=== PATIENT | male | born 1940 | race Caucasian/White ===

== ENCOUNTER 2020-09-04 17:10 | Emergency (ER) | payer MEDICARE, OTHER, SELFPAY ==
--- NOTE | ~2020-09-04 | XR_ITS ---
EXAMINATION: XR foot LT min 3V EXAM DATE: 09/04/2020 17:24 INDICATION: Left foot pain distally, kicked in object last night. Diabetes. TECHNIQUE: Left foot dorsoplantar, lateral and oblique projections obtained and reviewed. There is n o prior study for comparison. FINDINGS: Acute closed posttraumatic fracture of the left 3rd middle phalangeal base. This finding huff s been indicated, marked on the examination for review, clinical correlation. Left metatarsal bones unremarkable. Projection only foreshortened appearance to the 2nd-5th proximal phalanges, limiting evaluation of these. Tiny inferior calcaneal spur. IMPRESSION: 1. Acute left 3rd middle phalangeal base intra-articular fracture. Reviewed, dictated and finalized at location A.
[2020-09-04 17:23] VITALS: BP 165/60; PULSE 85; RESP 16; TEMP 36.9; O2SAT 98
--- NOTE | 2020-09-04 17:23 | ED.LOWEXIN ---
HPI - Extremity Injury (Lower) General Chief Complaint: Extremity Injury, Lower Stated Complaint: FOOT INJURY Time Seen by Provider: 09/04/20 17:20 Source: patient, RN notes reviewed and old records reviewed Mode of arrival: ambulatory Limitations: no limitations History of Present Illness HPI Narrative: 80 year old male presents to [facility] ambulatory with complaints of accidently kicking a box 1.5 days ago with pain, bruising and swelling to his left toes 3-5. Patient states that his pain is acute and is aggravated with ambulation. Patient states that he sees a doctor in [facility] and that his called him and he wanted him to have x-ray done to see if fracture is present in toes or foot since he is diabetic. Patient has no open skin areas to the left toes 3-5, no obvious deformity of fracture, does have some swelling and bruising to his toes. Patient takes OxyContin daily for chronic back pain, describes his pain as aching rates it 12/22. MD complaint: foot injury (toes left foot 3-5) Onset (ago): day(s) (1.5) Injury: Left: toes (3-5) Type of Injury: blunt Place: home Severity: severe Severity scale (1-10): 7 Relieving factors: rest Exacerbating factors: weight bearing Context: direct blow Associated symptoms: swelling and other (pain) Other symptoms: none Treatments prior to arrival: other (takes daily pain medication for his back) Related Data Home Medications Medication Instructions Recorded Confirmed amitriptyline 09/04/20 ammonium lactate TOPICAL 09/04/20 ergocalciferol (vitamin D2) 09/04/20 furosemide 09/04/20 gabapentin 09/04/20 gemfibrozil mg 09/04/20 glipizide mg 09/04/20 insulin aspart U-100 [Novolog unit SUBCUT 09/04/20 Flexpen U-100 Insulin] levothyroxine [Euthyrox] 09/04/20 lisinopril 09/04/20 omeprazole 09/04/20 oxycodone-acetaminophen 09/04/20 pravastatin 09/04/20 tamsulosin mg PO 09/04/20 Allergies Allergy/AdvReac Type Severity Reaction Status Date / Time No Known Allergies Allergy Unverified 09/05/20 10:29 Review of Systems Review of Systems: Narrative: CONSTITUTIONAL: Denies fever, chills, or sweats. EYES: Denies visual changes, redness, or discharge. ENT: Denies rhinorrhea, congestion, sore throat, or otalgia. CARDIOVASCULAR: Denies chest pain, palpitations, or edema. RESPIRATORY: Denies cough or dyspnea. GASTROINTESTINAL: Denies abdominal pain, nausea, vomiting, or diarrhea. GENITOURINARY: Denies dysuria or hematuria. SKIN: Denies rash or itching. MUSCULOSKELETAL Positive for chronic back pain back, pain to left 3rd,4th, and 5th toes of left foot. NEUROLOGIC: Denies headache, numbness, or weakness. PSYCHIATRIC: Denies anxiety or depression. All systems reviewed & are unremarkable except as noted in HPI and below PMFSH Past Medical History Medical History (Updated 09/06/20 @ 12:03 by Rosario Louie NP) Back pain Burst fracture of lumbar vertebra L1 Diabetes Enlarged prostate Hyperlipidemia Hypertension Hypothyroidism Kidney disease Surgical History Surgical History H/O left inguinal hernia repair Family History Family History Other Diabetes mellitus Hypertension Social History Social History (Updated 09/06/20 @ 11:51 by Rosario Louie NP) Smoking status: Unknown if ever smoked Alcohol intake: unknown Substance use: current Substance use type: opiates Other substance usage details: chronic pain to back Living arrangements: with family Gender identity (if verbalized by the patient): Male Comments At time of signature, agree with nursing past medical, surgical, social and family history. There is no relevant family history pertinent to the presenting complaint Exam Narrative: Exam Narrative: GENERAL: Well-appearing, well-nourished, and in mild distress. HEAD: Normocephalic, atraumatic. EYES: PERRLA and
[2020-09-04 17:31] VITALS: BP 165/60; PULSE 85; RESP 16; TEMP 36.9; O2SAT 98
== END 2020-09-04 17:49 | disposition home or self-care (01) ==
PROVIDERS: Emergency Provider Registered Nurse
DX: S92.525A Nondisplaced fracture of middle phalanx of left lesser toe(s), initial encounter for closed fracture (principal); W22.8XXA Striking against or struck by other objects, initial encounter; E11.9 Type 2 diabetes mellitus without complications; E78.5 Hyperlipidemia, unspecified; I10 Essential (primary) hypertension; E03.9 Hypothyroidism, unspecified
CPT/HCPCS: 73630; 99204; G0463

== ENCOUNTER 2022-05-04 15:07 | Emergency (ER) | payer MEDICARE, OTHER, SELFPAY ==
--- NOTE | ~2022-05-04 | XR_ITS ---
EXAM: XR ankle LT min 3V DATE: 05/04/2022 15:56 HISTORY: hyper extension strain . COMPARISON: None available. FINDINGS: Decreased mineralization. Anterior tibiotalar joint widening, with posterior subluxation o f the talus. Transverse, mildly distracted medial malleolar fracture. Oblique posteriorly angulated f racture of the distal fibula, at the level of the joint (Garza B type). Posterior malleolar fracture, with posterior displacement. No lytic or blastic lesion. No erosion or periosteal change. Soft tissu e swelling about the ankle. IMPRESSION: Trimalleolar left ankle fracture, with posterior tibiotalar subluxation. Reviewed, dictated and finalized at location K. TER (CAD) ELECTRICAL IMPRESSION: Trimalleolar left ankle fracture, with posterior tibiotalar subluxa tion.
[2022-05-04 15:10] VITALS: BP 160/72; PULSE 77; RESP 18; TEMP 36.1; O2SAT 100
--- NOTE | 2022-05-04 15:19 | ED.LOWEXIN ---
HPI - Extremity Injury (Lower) General Chief Complaint: Extremity Injury, Lower Stated Complaint: left ankle swelling/pain Time Seen by Provider: 05/04/22 15:15 Source: patient and RN notes reviewed Mode of arrival: ambulatory Limitations: no limitations History of Present Illness HPI Narrative: patient states he was walking through the house caught his toe on the carpet and hyper extended his right ankle. Now it hurts to walk on or touch it. MD complaint: ankle injury Injury: Left: knee Type of Injury: hyperextension Place: home Severity: moderate Relieving factors: nothing Exacerbating factors: weight bearing, movement and palpation Context: walking Associated symptoms: swelling and able to partially bear weight Other symptoms: none Related Data Home Medications Medication Instructions Recorded Confirmed amitriptyline 50 mg tablet 50 mg PO DAILY 09/04/20 05/04/22 ergocalciferol (vitamin D2) 1,250 1 unit PO DAILY 09/04/20 05/04/22 mcg (50,000 unit) capsule furosemide 20 mg tablet 10 mg PO DAILY 09/04/20 05/04/22 gabapentin 600 mg tablet 600 mg PO QID 09/04/20 05/04/22 gemfibrozil 600 mg tablet 600 mg PO DAILY 09/04/20 05/04/22 glipizide 5 mg tablet 5 mg PO DAILY 09/04/20 05/04/22 insulin aspart U-100 100 unit/mL 30 unit subcut QAM 09/04/20 05/04/22 (3 mL) subcutaneous pen (Novolog Flexpen U-100 Insulin aspart) levothyroxine 125 mcg tablet 125 mcg PO DAILY 09/04/20 05/04/22 (Euthyrox) lisinopril 5 mg tablet 5 mg PO DAILY 09/04/20 05/04/22 omeprazole 20 mg capsule,delayed 20 mg PO DAILY 09/04/20 05/04/22 release oxycodone-acetaminophen 10 mg-325 1 tablet PO PRN PRN Back Pain 09/04/20 05/04/22 mg tablet pravastatin 40 mg tablet 40 mg PO DAILY 09/04/20 05/04/22 tamsulosin 0.4 mg capsule 0.4 mg PO DAILY 09/04/20 05/04/22 Allergies Allergy/AdvReac Type Severity Reaction Status Date / Time No Known Allergies Allergy Unverified 09/05/20 10:29 Review of Systems Review of Systems: All systems reviewed & are unremarkable except as noted in HPI and below PMFSH Past Medical History Medical History Back pain Burst fracture of lumbar vertebra L1 Diabetes Enlarged prostate Hyperlipidemia Hypertension Hypothyroidism Kidney disease Surgical History Surgical History H/O left inguinal hernia repair Family History Family History Other Diabetes mellitus Hypertension Social History Social History Smoking status: Unknown if ever smoked Alcohol intake: unknown Substance use: current Substance use type: opiates Other substance usage details: chronic pain to back Gender identity (if verbalized by the patient): Male Exam Const: General: healthy appearing, no acute distress and alert Nutritional Appearance: well nourished and obese Orientation/consciousness: patient oriented x3 Limitations: no limitations HENMT: Head: normal to inspection Ears: external ears normal Face and sinus: normal facial exam Eyes: Conjunctivae: conjunctivae normal Pupils: Equal, round and reactive pupils present EOM: EOMs intact bilaterally Neck: Neck: normal visual inspection Resp: Effort & Inspection: normal respiratory effort Auscultation: clear to auscultation bilaterally Cardio: Rate: regular rate Rhythm: regular rhythm Heart sounds: Murmur heart sound present systolic holo, soft, III/ and at the right sternal border GI: GI Palp: Yes Soft to palpation and No Tenderness to palpation present (GI) Auscultation: normal bowel sounds Back/Spine/Pelvis: Cervical Spine: cervical ROM normal Thoracic/Lumbar Spine: thoraco-lumbar ROM normal Skin: General skin exam: normal color Rashes: no rashes Neuro: General: patient oriented x3, moves all extremities, no focal motor deficits and CN's
[2022-05-04] MEDS: HYDROcodone/acetaminophen (*CRX) 5-325 MG TABLET 1 TAB PO (16:33)
[2022-05-04 17:23] VITALS: BP 177/73; PULSE 73; RESP 20; TEMP 36.6; O2SAT 98
--- NOTE | 2022-05-04 18:06 | PC.NURSE ---
pt assisted to personal car via wheelchair with mariela abad
== END 2022-05-04 17:40 | disposition short-term general hospital (02) ==
PROVIDERS: Emergency Provider Emergency Medicine
DX: S82.852A Displaced trimalleolar fracture of left lower leg, initial encounter for closed fracture (principal); E11.9 Type 2 diabetes mellitus without complications; E78.5 Hyperlipidemia, unspecified; I10 Essential (primary) hypertension; E03.9 Hypothyroidism, unspecified
CPT/HCPCS: 27818; 73610; 99285; A9270

== ENCOUNTER 2022-05-15 12:35 | Inpatient (IN) | payer MEDICARE, OTHER, SELFPAY ==
--- NOTE | 2022-05-15 13:16 | ADMGEN ---
This patient, Moses Aparicio, was admitted to 2nd Floor Room 205-2. Patient/family oriented to hospital policies and general routines including ID bracelet, bed and alarms, visiting hours, pain management, procedures, bathroom and other care routines, personal items, smoking policy, room service/diet, and visiting hours. Information on how to activate the Rapid Response Team has been discussed. Patient/Family are encouraged to report perceived risks to care and to ask questions if they do not understand what they are told or what they should do.
[2022-05-15 13:18] VITALS: BMI 31.0
[2022-05-15 13:41] VITALS: PULSE 69; RESP 16; O2SAT 95
[2022-05-15] MEDS: GABAPENTIN 300 MG CAPSULE 600 MG PO ×2 (15:58→20:17)
[2022-05-15] MEDS: oxyCODONE/ACETAMINOPHEN (*CRX) 5-325 MG TABLET 1 TABLET PO (15:59)
[2022-05-15 16:00] VITALS: BP 145/65; PULSE 68; TEMP 36.4; O2SAT 97
--- NOTE | 2022-05-15 16:18 | PC.NURSE ---
Patient stated he was concerned about medications. Stated He takes oxycodone IR 10-325 mg 4x's a day for chronic back pain. Stated he doesn't take opiates or percocet. Stated he takes 1200 mg of neurotin QID. Asked if he could have his bring in medication bottles or list of medications he stated he doesn't like people to mess with his medicine Passed on information to charge nurse.
[2022-05-15 16:41] LABS: Glucose Point of Care 139 mg/dl (65-105)
--- NOTE | 2022-05-15 17:03 | PC.NURSE ---
Patient stated he called [facility] and requested a current med list be faxed to this number. Checked 2nd floor and 1st floor faxes-have not received at this time. reassured patient we will continue to work on medication
--- NOTE | 2022-05-15 19:04 | PC.NURSE ---
Patient called [facility] and requested we call. Spoke with Linda Pharmacist at [facility]. She confimed the following medication: Neurontin 600 mg 4x a day lasix 10 mg. Pravastatin 40 mg. Percocet 10/325 mg up to 4x a day. Patient became irate when other nurse and this nurse went over meds. Stated this was not the medication he took at home. Attempted to explain to patient gabapentin was the same dose. He continued to argue and become very loud and irate about medication. Stated he was going to call his doctor in the morning. we strongly encouraged him to have his doctor speak to hospitalist in the morning. We did attempt to explain his doctor did not have privileges at our hospital and the hospitalist and pharmacy worked together to determine the medication.
[2022-05-15] MEDS: ENOXAPARIN 40 MG/0.4 ML SYRINGE SUB-Q (20:12)
[2022-05-15] MEDS: AMITRIPTYLINE HCL 25 MG TABLET 50 MG PO (20:12)
[2022-05-15 20:17] LABS: Glucose Point of Care 311 mg/dl (65-105)
[2022-05-15] MEDS: traMADol HCL (*CRX) 50 MG TABLET PO (20:30)
[2022-05-15] MEDS: traZODone HCL 50 MG TABLET PO (20:30)
--- NOTE | 2022-05-15 21:47 | PC.NURSE ---
Dorys Klein, Hospitalist, notified that patient's HS blood sugar was 311. New orders received.
[2022-05-16] VITALS: BP 148/58; PULSE 75; RESP 18; TEMP 36.2; O2SAT 96
[2022-05-16 05:33] LABS: Hematocrit 30.5 % (37.0-46.0); Mean Corpuscular HGB Conc 32.8 g/dL (32.0-36.0); Mean Corpuscular Hemoglobin 30.4 pg (27.0-31.0); Mean Corpuscular Volume 92.7 fL (78.0-102.0); Platelet Count Result 360 K/mm3 (150-420); Red Blood Count 3.29 M/mm3 (4.70-6.10); Red Cell Distribution Width 12.2 % (11.6-14.4); White Blood Count 6.5 K/mm3 (4.8-10.8)
[2022-05-16 05:56] LABS: Alanine Aminotransferase 29 U/L (16-63); Albumin Level 2.5 g/dL (3.4-5.0); Alkaline Phosphatase 130 U/L (46-116); Anion Gap 9 mmol/L (8-16); Aspartate Amino Transferase 26 U/L (15-37); Bilirubin,Total 0.3 mg/dL (0.00-1.00); Blood Urea Nitrogen 30 mg/dL (7-18); Calcium 8.7 mg/dL (8.5-10.1); Carbon Dioxide 30 mmol/L (21-32); Chloride 105 mmol/L (98-108); Estimated CRCL calculation 37 ml/min; Estimated Glomerular Filt Rate 45; Glucose 116 mg/dL (70-99); Magnesium 1.6 mg/dL (1.8-2.4); Osmolality Calculated 305 mOsm/kg (285-295); Potassium 4.2 mmol/L (3.5-5.1); Sodium 144 mmol/L (136-145); Total Protein 6.8 g/dL (6.4-8.2)
[2022-05-16] MEDS: LEVOTHYROXINE SODIUM 100 MCG TABLET PO (06:07)
[2022-05-16] MEDS: LEVOTHYROXINE SODIUM 25 MCG TABLET PO (06:07)
[2022-05-16] MEDS: oxyCODONE/ACETAMINOPHEN (*CRX) 5-325 MG TABLET 1 TABLET PO ×2 (06:20→13:06)
[2022-05-16 07:25] VITALS: BP 117/85; PULSE 65; RESP 20; TEMP 36.3; O2SAT 95
[2022-05-16 07:29] LABS: Glucose Point of Care 114 mg/dl (65-105)
[2022-05-16] MEDS: FAMOTIDINE 20 MG TABLET 10 MG PO (08:00)
[2022-05-16] MEDS: PRAVASTATIN SODIUM 20 MG TABLET 40 MG PO (08:01)
[2022-05-16] MEDS: FUROSEMIDE 20 MG TABLET 10 MG PO (08:01)
[2022-05-16] MEDS: lisinopriL 10 MG TABLET PO (08:01)
[2022-05-16] MEDS: DOCUSATE SODIUM 100 MG CAPSULE PO (08:02)
[2022-05-16] MEDS: GABAPENTIN 300 MG CAPSULE 600 MG PO (08:02)
[2022-05-16] MEDS: TAMSULOSIN HCL 0.4 MG CAPSULE PO (08:02)
[2022-05-16] MEDS: ASPIRIN 81 MG CHEWABLE TABLET PO (08:02)
[2022-05-16] MEDS: CHOLECALCIFEROL 1,000 UNITS TABLET 1000 UNITS PO (08:03)
[2022-05-16] MEDS: gemfibroziL 600 MG TABLET PO (08:03)
[2022-05-16] MEDS: ENOXAPARIN 40 MG/0.4 ML SYRINGE SUB-Q ×2 (08:03→20:11)
[2022-05-16] MEDS: CYANOCOBALAMIN 1,000 MCG TABLET 1000 MCG PO (08:04)
[2022-05-16 11:38] LABS: Glucose Point of Care 260 mg/dl (65-105)
[2022-05-16] MEDS: GABAPENTIN 400 MG CAPSULE 1200 MG PO ×3 (11:41→20:12)
[2022-05-16] MEDS: LIDOCAINE 5% PATCH 1 PATCH TRANSDERM (11:41)
--- NOTE | 2022-05-16 11:44 | PM.IMHP ---
H&P: HPI History of Present Illness Date/Time: 05/16/22 11:44 Chief Complaint: rehab/weakness Narrative: 86-year-old male who presents to our hospital for rehab patient is status post left ankle ORIF on status post fall. Patient has a past medical history of chronic kidney disease, osteoarthritis, diabetes, hyperlipidemia, hypothyroidism, hypertension, and GERD. Patient admitted in swing bed for rehabilitation due to decreased balance decreased mobility in severe limited function endurant and/or mobility.. The patient denies SOB, CP, palpitation, extremity numbness, lightheadedness, dizziness, constipation, diarrhea, chills, or fever. patient notes that he has chronic back pain. he also notes that his medications are incorrect. call to his primary doctor Dr. Cook at [phone] for medication clarification. Review of Systems Review of Systems: A 14 organ system Review of Systems was performed and pertinent positives included in the HPI, otherwise remaining ROS is negative. [facility] Past Medical History Medical History Back pain Burst fracture of lumbar vertebra L1 Diabetes Enlarged prostate Hyperlipidemia Hypertension Hypothyroidism Kidney disease Surgical History Surgical History H/O left inguinal hernia repair Family History Family History (Updated 05/15/22 @ 13:31 by Ivet Santacruz RN) Father Diabetes mellitus Sibling Diabetes mellitus Other Hypertension Social History Social History Smoking status: Never smoker Alcohol intake: never Substance use: never Substance use type: opiates Other substance usage details: chronic pain to back Lack of Transportation: No Lack of Food: Never True Current Housing: I Have Housing Concerned About Future Housing: No Difficulty Paying Gas/Electric Bills: No Difficulty Paying for Meds: No Currently Unemployed: No Education: Grade School Difficulty w/ Childcare or Family Care: No Gender identity (if verbalized by the patient): Male Spiritual care concerns: No Meds Home Medications and Allergies Home Medications Medication Instructions Recorded Confirmed Type ergocalciferol (vitamin D2) 1,250 1 unit PO DAILY 09/04/20 05/15/22 History mcg (50,000 unit) capsule furosemide 20 mg tablet 10 mg PO DAILY 09/04/20 05/15/22 History gabapentin 600 mg tablet 600 mg PO QID 09/04/20 05/15/22 History gemfibrozil 600 mg tablet 600 mg PO DAILY 09/04/20 05/15/22 History insulin aspart U-100 100 unit/mL 30 unit subcut QAM 09/04/20 05/15/22 History (3 mL) subcutaneous pen (Novolog Flexpen U-100 Insulin aspart) levothyroxine 125 mcg tablet 125 mcg PO DAILY 09/04/20 05/15/22 History (Euthyrox) lisinopril 5 mg tablet 10 mg PO DAILY 09/04/20 05/15/22 History pravastatin 40 mg tablet 40 mg PO DAILY 09/04/20 05/15/22 History tamsulosin 0.4 mg capsule 0.4 mg PO DAILY 09/04/20 05/15/22 History Senna Plus (senna-docusate) 1 tablet BYMOUTH DAILY PRN 05/15/22 05/15/22 History Constipation acetaminophen 325 mg tablet 650 mg PO Q4-6H PRN Pain 05/15/22 05/15/22 History amitriptyline 50 mg tablet 50 mg HS 05/15/22 05/15/22 History aspirin 81 mg capsule 81 mg PO DAILY 05/15/22 05/15/22 History calcium carbonate 215 mg calcium 500 mg PO TIDWM PRN Acid Reflux 05/15/22 05/15/22 History (500 mg) chewable tablet (Antacid (calcium carbonate)) cyanocobalamin (vitamin B-12) 1,000 mcg PO DAILY 05/15/22 05/15/22 History 1,000 mcg tablet (Vitamin B-12) enoxaparin 40 mg/0.4 mL 40 mg subcut Q12H 05/15/22 05/15/22 History subcutaneous syringe famotidine 10 mg tablet 10 mg PO DAILY 05/15/22 05/15/22 History insulin glargine 100 unit/mL 18 unit subcut DAILY 05/15/22 05/15/22 History subcutaneous solution (Lantus U-100 Insulin) omega-3 fatty acids 1 cap PO TIDWMEAL 05/15/2205/15
[2022-05-16 16:00] VITALS: BP 108/52; PULSE 70; RESP 16; TEMP 36.6; O2SAT 94
[2022-05-16 16:09] LABS: Glucose Point of Care 227 mg/dl (65-105)
[2022-05-16] MEDS: AMITRIPTYLINE HCL 25 MG TABLET 50 MG PO (20:12)
[2022-05-16] MEDS: traZODone HCL 50 MG TABLET PO (20:13)
[2022-05-16 20:14] LABS: Glucose Point of Care 170 mg/dl (65-105)
[2022-05-17] VITALS: BP 125/55; PULSE 72; RESP 20; TEMP 36.2; O2SAT 97
[2022-05-17] MEDS: LEVOTHYROXINE SODIUM 25 MCG TABLET PO (06:18)
[2022-05-17] MEDS: LEVOTHYROXINE SODIUM 100 MCG TABLET PO (06:18)
[2022-05-17] MEDS: oxyCODONE/ACETAMINOPHEN (*CRX) 5-325 MG TABLET 1 TABLET PO (06:19)
[2022-05-17 08:00] VITALS: BP 123/54; PULSE 61; RESP 16; TEMP 36.9; O2SAT 96
[2022-05-17] MEDS: MAGNESIUM OXIDE 400 MG TABLET PO (09:26)
[2022-05-17] MEDS: ENOXAPARIN 40 MG/0.4 ML SYRINGE SUB-Q ×2 (09:26→21:06)
[2022-05-17] MEDS: PRAVASTATIN SODIUM 20 MG TABLET 40 MG PO (09:26)
[2022-05-17] MEDS: lisinopriL 10 MG TABLET PO (09:26)
[2022-05-17] MEDS: gemfibroziL 600 MG TABLET PO (09:27)
[2022-05-17] MEDS: FAMOTIDINE 20 MG TABLET 10 MG PO (09:27)
[2022-05-17] MEDS: TAMSULOSIN HCL 0.4 MG CAPSULE PO (09:27)
[2022-05-17] MEDS: CYANOCOBALAMIN 1,000 MCG TABLET 1000 MCG PO (09:28)
[2022-05-17] MEDS: DOCUSATE SODIUM 100 MG CAPSULE PO ×2 (09:28→21:07)
[2022-05-17] MEDS: ASPIRIN 81 MG CHEWABLE TABLET PO (09:28)
[2022-05-17] MEDS: GABAPENTIN 400 MG CAPSULE 1200 MG PO ×2 (09:28→13:03)
[2022-05-17 09:29] LABS: Glucose Point of Care 315 mg/dl (65-105)
[2022-05-17] MEDS: FUROSEMIDE 20 MG TABLET 10 MG PO (09:29)
[2022-05-17] MEDS: CHOLECALCIFEROL 1,000 UNITS TABLET 1000 UNITS PO (09:30)
[2022-05-17] MEDS: LIDOCAINE 5% PATCH 1 PATCH TRANSDERM (09:32)
[2022-05-17 11:51] LABS: Glucose Point of Care 283 mg/dl (65-105)
[2022-05-17 16:35] VITALS: BP 127/60; PULSE 69; RESP 18; TEMP 36.3; O2SAT 95
[2022-05-17 17:07] LABS: Glucose Point of Care 195 mg/dl (65-105)
[2022-05-17] MEDS: AMITRIPTYLINE HCL 25 MG TABLET 50 MG PO (21:07)
[2022-05-17] MEDS: traZODone HCL 50 MG TABLET PO (21:07)
[2022-05-17 21:17] LABS: Glucose Point of Care 219 mg/dl (65-105)
[2022-05-17 23:57] VITALS: BP 120/59; PULSE 72; RESP 18; TEMP 36.8; O2SAT 95
[2022-05-18] MEDS: LEVOTHYROXINE SODIUM 25 MCG TABLET PO (05:39)
[2022-05-18] MEDS: LEVOTHYROXINE SODIUM 100 MCG TABLET PO (05:39)
[2022-05-18 07:49] LABS: Glucose Point of Care 160 mg/dl (65-105)
[2022-05-18 08:00] VITALS: BP 139/73; PULSE 65; RESP 16; TEMP 36.3; O2SAT 97
[2022-05-18] MEDS: PRAVASTATIN SODIUM 20 MG TABLET 40 MG PO (09:35)
[2022-05-18] MEDS: ENOXAPARIN 40 MG/0.4 ML SYRINGE SUB-Q ×2 (09:35→20:40)
[2022-05-18] MEDS: gemfibroziL 600 MG TABLET PO (09:36)
[2022-05-18] MEDS: lisinopriL 10 MG TABLET PO (09:39)
[2022-05-18] MEDS: FUROSEMIDE 20 MG TABLET 10 MG PO (09:39)
[2022-05-18] MEDS: FAMOTIDINE 20 MG TABLET 10 MG PO (09:41)
[2022-05-18] MEDS: CYANOCOBALAMIN 1,000 MCG TABLET 1000 MCG PO (09:42)
[2022-05-18] MEDS: ASPIRIN 81 MG CHEWABLE TABLET PO (09:42)
[2022-05-18] MEDS: TAMSULOSIN HCL 0.4 MG CAPSULE PO (09:43)
[2022-05-18 11:59] LABS: Glucose Point of Care 252 mg/dl (65-105)
[2022-05-18 16:35] VITALS: BP 153/65; PULSE 73; RESP 18; TEMP 36.6; O2SAT 97
[2022-05-18 17:05] LABS: Glucose Point of Care 180 mg/dl (65-105)
[2022-05-18 20:44] LABS: Glucose Point of Care 246 mg/dl (65-105)
[2022-05-18] MEDS: AMITRIPTYLINE HCL 25 MG TABLET 50 MG PO (20:45)
[2022-05-18] MEDS: GABAPENTIN 400 MG CAPSULE 1200 MG PO (20:46)
[2022-05-18] MEDS: DOCUSATE SODIUM 100 MG CAPSULE PO (20:46)
[2022-05-18] MEDS: traZODone HCL 50 MG TABLET PO (20:47)
[2022-05-18] MEDS: oxyCODONE/ACETAMINOPHEN (*CRX) 5-325 MG TABLET 1 TABLET PO (22:43)
[2022-05-18 23:29] VITALS: BP 174/67; PULSE 72; RESP 17; TEMP 36.6; O2SAT 94
[2022-05-19] MEDS: LEVOTHYROXINE SODIUM 100 MCG TABLET PO (06:10)
[2022-05-19] MEDS: LEVOTHYROXINE SODIUM 25 MCG TABLET PO (06:10)
[2022-05-19 08:00] VITALS: BP 131/63; PULSE 62; RESP 16; TEMP 36.3; O2SAT 97
[2022-05-19 08:04] LABS: Glucose Point of Care 160 mg/dl (65-105)
[2022-05-19] MEDS: ENOXAPARIN 40 MG/0.4 ML SYRINGE SUB-Q ×2 (08:21→21:11)
[2022-05-19] MEDS: oxyCODONE/ACETAMINOPHEN (*CRX) 5-325 MG TABLET 1 TABLET PO (08:21)
[2022-05-19] MEDS: gemfibroziL 600 MG TABLET PO (08:23)
[2022-05-19] MEDS: MAGNESIUM OXIDE 400 MG TABLET PO (08:24)
[2022-05-19] MEDS: CYANOCOBALAMIN 1,000 MCG TABLET 1000 MCG PO (08:25)
[2022-05-19] MEDS: TAMSULOSIN HCL 0.4 MG CAPSULE PO (08:25)
[2022-05-19] MEDS: CHOLECALCIFEROL 1,000 UNITS TABLET 1000 UNITS PO (08:25)
[2022-05-19] MEDS: FAMOTIDINE 20 MG TABLET 10 MG PO (08:25)
[2022-05-19] MEDS: lisinopriL 10 MG TABLET PO (08:26)
[2022-05-19] MEDS: DOCUSATE SODIUM 100 MG CAPSULE PO ×2 (08:26→21:10)
[2022-05-19] MEDS: PRAVASTATIN SODIUM 20 MG TABLET 40 MG PO (08:27)
[2022-05-19] MEDS: FUROSEMIDE 20 MG TABLET 10 MG PO (08:27)
[2022-05-19] MEDS: ASPIRIN 81 MG CHEWABLE TABLET PO (08:28)
--- NOTE | 2022-05-19 13:03 | PC.NURSE ---
Patient refused am and 1300 gabapentin.
[2022-05-19 16:00] VITALS: BP 112/47; PULSE 70; RESP 16; TEMP 36.8; O2SAT 97
[2022-05-19] MEDS: ACETAMINOPHEN 325 MG TABLET 650 MG PO ×2 (16:37→22:25)
[2022-05-19] MEDS: GABAPENTIN 400 MG CAPSULE 1200 MG PO ×2 (16:38→21:10)
[2022-05-19 16:41] LABS: Glucose Point of Care 198 mg/dl (65-105)
[2022-05-19] MEDS: traZODone HCL 50 MG TABLET PO (21:10)
[2022-05-19] MEDS: AMITRIPTYLINE HCL 25 MG TABLET 50 MG PO (21:11)
[2022-05-19 21:23] LABS: Glucose Point of Care 211 mg/dl (65-105)
[2022-05-20] VITALS: BP 130/65; PULSE 66; RESP 16; TEMP 37.2; O2SAT 95
[2022-05-20 00:45] LABS: Glucose Point of Care 196 mg/dl (65-105)
[2022-05-20] MEDS: LEVOTHYROXINE SODIUM 100 MCG TABLET PO (06:40)
[2022-05-20] MEDS: LEVOTHYROXINE SODIUM 25 MCG TABLET PO (06:40)
[2022-05-20 08:00] VITALS: BP 147/70; PULSE 66; RESP 16; TEMP 36.6; O2SAT 97
[2022-05-20] MEDS: ENOXAPARIN 40 MG/0.4 ML SYRINGE SUB-Q ×2 (08:51→21:01)
[2022-05-20] MEDS: CHOLECALCIFEROL 1,000 UNITS TABLET 1000 UNITS PO (08:52)
[2022-05-20] MEDS: ASPIRIN 81 MG CHEWABLE TABLET PO (08:52)
[2022-05-20 08:53] LABS: Glucose Point of Care 232 mg/dl (65-105)
[2022-05-20] MEDS: DOCUSATE SODIUM 100 MG CAPSULE PO ×2 (08:53→21:19)
[2022-05-20] MEDS: FAMOTIDINE 20 MG TABLET 10 MG PO (08:53)
[2022-05-20] MEDS: TAMSULOSIN HCL 0.4 MG CAPSULE PO (08:53)
[2022-05-20] MEDS: PRAVASTATIN SODIUM 20 MG TABLET 40 MG PO (08:54)
[2022-05-20] MEDS: lisinopriL 10 MG TABLET PO (08:54)
[2022-05-20] MEDS: CYANOCOBALAMIN 1,000 MCG TABLET 1000 MCG PO (08:55)
[2022-05-20] MEDS: gemfibroziL 600 MG TABLET PO (08:55)
[2022-05-20] MEDS: MAGNESIUM OXIDE 400 MG TABLET PO (08:55)
[2022-05-20] MEDS: FUROSEMIDE 20 MG TABLET 10 MG PO (08:56)
[2022-05-20] MEDS: ACETAMINOPHEN 325 MG TABLET 650 MG PO (09:33)
[2022-05-20 11:53] LABS: Glucose Point of Care 223 mg/dl (65-105)
[2022-05-20] MEDS: GABAPENTIN 400 MG CAPSULE 1200 MG PO (13:04)
[2022-05-20 16:00] VITALS: BP 123/56; PULSE 71; RESP 16; TEMP 37.1; O2SAT 97
[2022-05-20] MEDS: oxyCODONE/ACETAMINOPHEN (*CRX) 5-325 MG TABLET 1 TABLET PO (16:26)
[2022-05-20 16:33] LABS: Glucose Point of Care 239 mg/dl (65-105)
[2022-05-20] MEDS: traZODone HCL 50 MG TABLET PO (21:02)
[2022-05-20] MEDS: AMITRIPTYLINE HCL 25 MG TABLET 50 MG PO (21:02)
[2022-05-20 21:14] LABS: Glucose Point of Care 231 mg/dl (65-105)
[2022-05-21] VITALS: BP 124/59; PULSE 67; RESP 16; TEMP 36.6; O2SAT 96
[2022-05-21] MEDS: ACETAMINOPHEN 325 MG TABLET 650 MG PO (05:39)
[2022-05-21] MEDS: LEVOTHYROXINE SODIUM 100 MCG TABLET PO (06:31)
[2022-05-21] MEDS: LEVOTHYROXINE SODIUM 25 MCG TABLET PO (06:31)
[2022-05-21 07:58] LABS: Glucose Point of Care 176 mg/dl (65-105)
[2022-05-21] MEDS: ENOXAPARIN 40 MG/0.4 ML SYRINGE SUB-Q ×2 (09:02→21:11)
[2022-05-21] MEDS: MAGNESIUM OXIDE 400 MG TABLET PO (09:02)
[2022-05-21] MEDS: gemfibroziL 600 MG TABLET PO (09:02)
[2022-05-21] MEDS: PRAVASTATIN SODIUM 20 MG TABLET 40 MG PO (09:02)
[2022-05-21] MEDS: CYANOCOBALAMIN 1,000 MCG TABLET 1000 MCG PO (09:03)
[2022-05-21] MEDS: FUROSEMIDE 20 MG TABLET 10 MG PO (09:03)
[2022-05-21] MEDS: lisinopriL 10 MG TABLET PO (09:03)
[2022-05-21] MEDS: FAMOTIDINE 20 MG TABLET 10 MG PO (09:04)
[2022-05-21] MEDS: CHOLECALCIFEROL 1,000 UNITS TABLET 1000 UNITS PO (09:04)
[2022-05-21] MEDS: ASPIRIN 81 MG CHEWABLE TABLET PO (09:04)
[2022-05-21] MEDS: oxyCODONE/ACETAMINOPHEN (*CRX) 5-325 MG TABLET 1 TABLET PO ×2 (09:12→18:52)
--- NOTE | 2022-05-21 15:55 | PC.NURSE ---
Pt returned to room from appointment with family. Pt sitting at side of bed. soft wrap with boot on left leg. Pt states he is now toe touch weight bearing. Pt has no complaints, denies pain. Has no written orders from appointment. Sitting on side of bed per pt request. Call [place] in reach.
[2022-05-21 16:00] VITALS: BP 132/50; PULSE 81; RESP 20; TEMP 35.6; O2SAT 95
[2022-05-21 16:37] LABS: Glucose Point of Care 300 mg/dl (65-105)
[2022-05-21] MEDS: GABAPENTIN 400 MG CAPSULE 1200 MG PO ×2 (16:44→21:11)
[2022-05-21] MEDS: traZODone HCL 50 MG TABLET PO (21:10)
[2022-05-21] MEDS: AMITRIPTYLINE HCL 25 MG TABLET 50 MG PO (21:10)
[2022-05-21 21:22] LABS: Glucose Point of Care 244 mg/dl (65-105)
[2022-05-21 23:20] VITALS: BP 135/55; PULSE 80; RESP 16; TEMP 36.3; O2SAT 97
[2022-05-22] MEDS: ACETAMINOPHEN 325 MG TABLET 650 MG PO (00:26)
[2022-05-22] MEDS: LEVOTHYROXINE SODIUM 100 MCG TABLET PO (05:45)
[2022-05-22] MEDS: LEVOTHYROXINE SODIUM 25 MCG TABLET PO (05:45)
[2022-05-22 08:00] VITALS: BP 134/55; PULSE 78; RESP 16; TEMP 36.8; O2SAT 97
[2022-05-22 08:17] LABS: Glucose Point of Care 189 mg/dl (65-105)
[2022-05-22] MEDS: GABAPENTIN 400 MG CAPSULE 1200 MG PO ×4 (09:00→16:54)
[2022-05-22] MEDS: CHOLECALCIFEROL 1,000 UNITS TABLET 1000 UNITS PO (09:32)
[2022-05-22] MEDS: ASPIRIN 81 MG CHEWABLE TABLET PO (09:32)
[2022-05-22] MEDS: PRAVASTATIN SODIUM 20 MG TABLET 40 MG PO (09:33)
[2022-05-22] MEDS: TAMSULOSIN HCL 0.4 MG CAPSULE PO ×2 (09:33→09:34)
[2022-05-22] MEDS: ENOXAPARIN 40 MG/0.4 ML SYRINGE SUB-Q (09:33)
[2022-05-22] MEDS: FAMOTIDINE 20 MG TABLET 10 MG PO (09:34)
[2022-05-22] MEDS: gemfibroziL 600 MG TABLET PO (09:36)
[2022-05-22] MEDS: DOCUSATE SODIUM 100 MG CAPSULE PO (09:36)
[2022-05-22] MEDS: lisinopriL 10 MG TABLET PO (09:37)
[2022-05-22] MEDS: FUROSEMIDE 20 MG TABLET 10 MG PO (09:37)
[2022-05-22] MEDS: MAGNESIUM OXIDE 400 MG TABLET PO (09:38)
[2022-05-22] MEDS: CYANOCOBALAMIN 1,000 MCG TABLET 1000 MCG PO (09:38)
[2022-05-22] MEDS: oxyCODONE/ACETAMINOPHEN (*CRX) 5-325 MG TABLET 1 TABLET PO ×2 (11:34→21:43)
[2022-05-22 11:43] LABS: Glucose Point of Care 195 mg/dl (65-105)
[2022-05-22 16:30] VITALS: BP 112/50; PULSE 72; RESP 18; TEMP 36.3; O2SAT 95
[2022-05-22 17:01] LABS: Glucose Point of Care 205 mg/dl (65-105)
[2022-05-22] MEDS: traZODone HCL 50 MG TABLET PO (21:42)
[2022-05-22] MEDS: AMITRIPTYLINE HCL 25 MG TABLET 50 MG PO (21:42)
[2022-05-22 21:52] LABS: Glucose Point of Care 278 mg/dl (65-105)
[2022-05-22 23:03] VITALS: BP 119/45; PULSE 75; RESP 16; TEMP 36.4; O2SAT 95
[2022-05-23] MEDS: LEVOTHYROXINE SODIUM 100 MCG TABLET PO (06:15)
[2022-05-23] MEDS: LEVOTHYROXINE SODIUM 25 MCG TABLET PO (06:15)
[2022-05-23 08:00] VITALS: BP 122/60; PULSE 78; RESP 14; TEMP 36.6; O2SAT 96
[2022-05-23 08:26] LABS: Glucose Point of Care 172 mg/dl (65-105)
[2022-05-23] MEDS: oxyCODONE/ACETAMINOPHEN (*CRX) 5-325 MG TABLET 1 TABLET PO (09:27)
[2022-05-23] MEDS: ASPIRIN 81 MG CHEWABLE TABLET PO (09:27)
[2022-05-23] MEDS: CYANOCOBALAMIN 1,000 MCG TABLET 1000 MCG PO (09:28)
[2022-05-23] MEDS: FUROSEMIDE 20 MG TABLET 10 MG PO (09:28)
[2022-05-23] MEDS: PRAVASTATIN SODIUM 20 MG TABLET 40 MG PO (09:29)
[2022-05-23] MEDS: CHOLECALCIFEROL 1,000 UNITS TABLET 1000 UNITS PO (09:30)
[2022-05-23] MEDS: gemfibroziL 600 MG TABLET PO (09:30)
[2022-05-23] MEDS: lisinopriL 10 MG TABLET PO (09:30)
[2022-05-23] MEDS: FAMOTIDINE 20 MG TABLET 10 MG PO (09:30)
[2022-05-23] MEDS: TAMSULOSIN HCL 0.4 MG CAPSULE PO (09:30)
[2022-05-23] MEDS: ENOXAPARIN 40 MG/0.4 ML SYRINGE SUB-Q (09:31)
--- NOTE | 2022-05-23 11:14 | P.DS_ITS ---
DS: Admitting Diagnosis Discharge Date 05/23/2022 Admitting Diagnosis Weakness , Rehab, OriF, DS: Discharge Diagnosis Discharge Diagnosis (1) Weakness: Code(s): R53.1 - Weakness Status: Acute Assessment and Plan: ? Exhibit tolerance during physical activity as evidenced by a normal f luctuation of vital signs during physical activity. ? Patient will be ability to perform required activities of daily living. ? Provide appropriate nutrition for healing and strength. ? Use appropriate to prevent falls. ? Continue physical therapy/occupational therapy. (2) Trimalleolar fracture: Code(s): S82.853A - Displaced trimalleolar fracture of unspecified lower leg, initial encounter for closed fracture Status: Acute Assessment and Plan: * s/p external fixator placement on 05/05 and orif 05/12 * nonweightbearing to left lower extremity * continue Lovenox for 35 days * follow-up with Dr. Silveira on May 21 at 2:00 p.m. * continue PTOT * continue pain management' * Patient (3) Osteoporosis: Code(s): M81.0 - Age-related osteoporosis without current pathological fracture Status: Acute Assessment and Plan: * continue vitamin-D and calcium * patient will need outpatient DEXA (4) T2DM (type 2 diabetes mellitus): Code(s): E11.9 - Type 2 diabetes mellitus without complications Status: Acute Assessment and Plan: * continue Accu-Chek sliding scale hypoglycemic protocol * adjusted home medication * continue diabetic diet (5) Neuropathy: Code(s): G62.9 - Polyneuropathy, unspecified Status: Acute Assessment and Plan: * continue gabapentin (6) CKD (chronic kidney disease) stage 3, GFR 30-59 ml/min: Code(s): N18.30 - Chronic kidney disease, stage 3 unspecified Status: Acute Assessment and Plan: * BUN and creatinine 30/1.49 unsure of baseline * will renal dose medication * avoid nephrotoxins medications * (7) Hypothyroidism: Code(s): E03.9 - Hypothyroidism, unspecified Status: Acute Assessment and Plan: * continue levothyroxine (8) Hyperlipidemia: Code(s): E78.5 - Hyperlipidemia, unspecified Status: Acute Assessment and Plan: * continue statins and gemfibrozil (9) Hypertension: Code(s): I10 - Essential (primary) hypertension Status: Acute Assessment and Plan: * stable * continue lisinopril 10 mg and Lasix 20 mg daily * vital signs is ordered * will adjust medications (10) Anemia: Code(s): D64.9 - Anemia, unspecified Status: Acute Assessment and Plan: * secondary to chronic kidney disease in ID a * continue supplements (11) BPH (benign prostatic hyperplasia): Code(s): N40.0 - Benign prostatic hyperplasia without lower urinary tract symptoms Status: Acute Assessment and Plan: * continue Flomax DS: Summary Hospital Course Reason for hospitalization: Weakness, OrIF status post left ankle Hospital Course: ? 86-year-old male who presents to our hospital for rehab patient is status post left ankle ORIF on? status post fall.? Patient has a past medical history of chronic kidney disease, osteoarthritis, diabetes, hyperlipidemia, hypothyroidism, hypertension, and GERD. ? Patient admitted in swing bed for rehabilitation due to decreased balance decreased mobility in severe limited function endurant and/or mobility.. Patient has continued to work with physical therapy he has
--- NOTE | 2022-05-23 11:14 | PM.DS ---
DS: Admitting Diagnosis Discharge Date 05/23/2022 Admitting Diagnosis Weakness , Rehab, OriF, DS: Discharge Diagnosis Discharge Diagnosis (1) Weakness: Code(s): R53.1 - Weakness Status: Acute Assessment and Plan: ? Exhibit tolerance during physical activity as evidenced by a normal fluctuation of vital signs during physical activity. ? Patient will be ability to perform required activities of daily living. ? Provide appropriate nutrition for healing and strength. ? Use appropriate to prevent falls. ? Continue physical therapy/occupational therapy. (2) Trimalleolar fracture: Code(s): S82.853A - Displaced trimalleolar fracture of unspecified lower leg, initial encounter for closed fracture Status: Acute Assessment and Plan: s/p external fixator placement on 05/05 and orif 05/12 nonweightbearing to left lower extremity continue Lovenox for 35 days follow-up with Dr. Silveira on May 21 at 2:00 p.m. continue PTOT continue pain management' Patient (3) Osteoporosis: Code(s): M81.0 - Age-related osteoporosis without current pathological fracture Status: Acute Assessment and Plan: continue vitamin-D and calcium patient will need outpatient DEXA (4) T2DM (type 2 diabetes mellitus): Code(s): E11.9 - Type 2 diabetes mellitus without complications Status: Acute Assessment and Plan: continue Accu-Chek sliding scale hypoglycemic protocol adjusted home medication continue diabetic diet (5) Neuropathy: Code(s): G62.9 - Polyneuropathy, unspecified Status: Acute Assessment and Plan: continue gabapentin (6) CKD (chronic kidney disease) stage 3, GFR 30-59 ml/min: Code(s): N18.30 - Chronic kidney disease, stage 3 unspecified Status: Acute Assessment and Plan: BUN and creatinine 30/1.49 unsure of baseline will renal dose medication avoid nephrotoxins medications (7) Hypothyroidism: Code(s): E03.9 - Hypothyroidism, unspecified Status: Acute Assessment and Plan: continue levothyroxine (8) Hyperlipidemia: Code(s): E78.5 - Hyperlipidemia, unspecified Status: Acute Assessment and Plan: continue statins and gemfibrozil (9) Hypertension: Code(s): I10 - Essential (primary) hypertension Status: Acute Assessment and Plan: stable continue lisinopril 10 mg and Lasix 20 mg daily vital signs is ordered will adjust medications (10) Anemia: Code(s): D64.9 - Anemia, unspecified Status: Acute Assessment and Plan: secondary to chronic kidney disease in ID a continue supplements (11) BPH (benign prostatic hyperplasia): Code(s): N40.0 - Benign prostatic hyperplasia without lower urinary tract symptoms Status: Acute Assessment and Plan: continue Flomax DS: Summary Hospital Course Reason for hospitalization: Weakness, OrIF status post left ankle Hospital Course: ? 86-year-old male who presents to our hospital for rehab patient is status post left ankle ORIF on? status post fall.? Patient has a past medical history of chronic kidney disease, osteoarthritis, diabetes, hyperlipidemia, hypothyroidism, hypertension, and GERD. ? Patient admitted in swing bed for rehabilitation due to decreased balance decreased mobility in severe limited function endurant and/or mobility.. Patient has continued to work with physical therapy he has progressed enough where he can safely get around into a wheelchair and into his bed with independent mobility. Patient transfers to the wheelchair has been trying how to happen not place weight on the affected leg once he is able to start bearing weight he will then start outpatient physical therapy at this time he has been deemed safe for just discharge Time Spent with Patient Time attestation: Total time spent providing and/or coordinating discharge servi
[2022-05-23 11:35] LABS: Glucose Point of Care 224 mg/dl (65-105)
--- NOTE | 2022-05-23 14:25 | PC.NURSE ---
Pt discharged home with family. Discharge instructions given. Pt left with his WC and Walker. Pt and family instructed on medications and diet. Pt and family voiced understanding. RN assisted pt to car and helped him in.
--- NOTE | 2022-05-28 14:02 | PC.NURSE ---
Unable to contact for discharge call back.
== END 2022-05-23 12:00 | disposition home or self-care (01) | DRG 561 ==
PROVIDERS: Nurse Practitioner; Admitting Provider Internal Medicine; Visit Provider Internal Medicine
DX: S82.852D Displaced trimalleolar fracture of left lower leg, subsequent encounter for closed fracture with routine healing (principal); E11.40 Type 2 diabetes mellitus with diabetic neuropathy, unspecified; E11.22 Type 2 diabetes mellitus with diabetic chronic kidney disease; I12.9 Hypertensive chronic kidney disease with stage 1 through stage 4 chronic kidney disease, or unspecified chronic kidney disease; N18.30 Chronic kidney disease, stage 3 unspecified; D64.9 Anemia, unspecified; E03.9 Hypothyroidism, unspecified; E78.5 Hyperlipidemia, unspecified; K21.9 Gastro-esophageal reflux disease without esophagitis; M81.0 Age-related osteoporosis without current pathological fracture; N40.0 Benign prostatic hyperplasia without lower urinary tract symptoms; R53.1 Weakness; Z79.4 Long term (current) use of insulin; Z79.82 Long term (current) use of aspirin
CPT/HCPCS: 36415; 80053; 82948; 83036; 83735; 85027; 97110; 97162; 97165; 97530; 97535; A9270; J1650; J1815

== ENCOUNTER 2024-05-25 16:15 | Outpatient (CLI) | payer MEDICARE, SELFPAY ==
[2024-05-25 17:16] LABS: Basophils Absolute Auto 0.03 K/mm3 (0.00-0.10); Basophils Percent Auto 0.6 % (0.0-1.0); Eosinophils Absolute Auto 0.18 K/mm3 (0.02-0.50); Eosinophils Percent Auto 3.8 % (1.0-6.0); Hematocrit 34.8 % (37.0-46.0); Hemoglobin 11.7 g/dL (12.4-15.3); Immature Granulocyte Absolute 0.01 K/mm3 (0.00-0.00); Immature Granulocyte Percent A 0.2 % (0.0-0.0); Lymphocytes Absolute Auto 1.63 K/mm3 (1.10-4.50); Lymphocytes Percent Auto 34.3 % (18.0-42.0); Mean Corpuscular HGB Conc 33.6 g/dL (32-36); Mean Corpuscular Hemoglobin 29.9 pg (27.0-31.0); Mean Platelet Volume 10.5 fl (8.7-11.0); Monocytes Absolute Auto 0.31 K/mm3 (0.10-0.90); Monocytes Percent Auto 6.5 % (2.0-11.0); Neutrophils Absolute Auto 2.59 K/mm3 (1.70-7.20); Neutrophils Percent Auto 54.6 % (50.0-70.0); Platelet Count Result 210 K/mm3 (150-420); Red Blood Count 3.91 M/mm3 (4.70-6.10); Red Cell Distribution Width 12.5 % (11.6-14.4); White Blood Count 4.8 K/mm3 (4.8-10.8)
[2024-05-25 17:17] LABS: Potassium 4.2 mmol/L (3.5-5.1); Sodium 142 mmol/L (136-145)
[2024-05-25 17:18] LABS: Anion Gap 10 mmol/L (4-12); Bilirubin,Total 0.4 mg/dL (0.00-1.00); Blood Urea Nitrogen 20 mg/dL (7-18); Carbon Dioxide 29 mmol/L (21-32); Chloride 103 mmol/L (98-108); Estimated Glomerular Filt Rate 54; Glucose 200 mg/dL (70-99); Osmolality Calculated 302 mOsm/kg (285-295)
[2024-05-25 17:19] LABS: Alanine Aminotransferase 26 U/L (16-63); Albumin Level 3.6 g/dL (3.4-5.0); Alkaline Phosphatase 74 U/L (46-116); Cholesterol 155 mg/dL (0-200); HDL Direct 53 mg/dL (40-60); LDL Cholesterol Calculated 75 mg/dL (<130); Total Protein 6.4 g/dL (6.4-8.2); Triglycerides 135 mg/dL (0-150)
[2024-05-25 17:23] LABS: Calcium 9.6 mg/dL (8.5-10.1); Iron 74 ug/dL (65-175); Percent Iron Saturation 34 % (12-57)
[2024-05-25 17:24] LABS: Aspartate Amino Transferase 20 U/L (15-37); Prostate Specific Antigen 0.8 ng/mL (< OR = 4.0)
[2024-05-25 17:25] LABS: Thyroid Stimulating Hormone 0.11 uIU/mL (0.36-3.74)
[2024-05-25 17:36] LABS: Hemoglobin A1C 6.8 % (<5.7)
[2024-05-27 04:23] LABS: Vitamin D 25 Hydroxy 54 ng/mL (30-100)
[2024-05-27 07:25] LABS: Total Triiodothyronine (T3) 95 ng/dL (76-181)
== END 2024-05-25 16:16 | disposition home or self-care (01) ==
LOC: CHSLAB 16:17
PROVIDERS: PCP Nurse Practitioner Family; Visit Provider Nurse Practitioner Family
DX: R79.89 Other specified abnormal findings of blood chemistry (principal); E03.9 Hypothyroidism, unspecified; E11.9 Type 2 diabetes mellitus without complications; I10 Essential (primary) hypertension; Z79.899 Other long term (current) drug therapy; Z13.6 Encounter for screening for cardiovascular disorders; E78.5 Hyperlipidemia, unspecified; N40.0 Benign prostatic hyperplasia without lower urinary tract symptoms; D64.9 Anemia, unspecified
CPT/HCPCS: 36415; 80053; 80061; 82306; 83036; 83540; 83550; 84153; 84439; 84443; 84480; 85025